=== PATIENT | male | born 1980 | race American Indian/Alaskan Native ===

== ENCOUNTER 2019-02-12 19:11 | Emergency (ER) | payer SELFPAY ==
[2019-02-12 19:37] VITALS: BP 139/88
--- NOTE | 2019-02-12 19:59 | Emergency Department Report ---
Chief Complaint: Dental/Oral Stated Complaint: MOUTH ABSCESS Time Seen by Provider: 02/12/19 19:53 - HPI History of Present Illness: pt presents to the ED with c/o dental abscess to the right lower side [facility] ([facility]) today placed on amoxicillin and ibuprofen has not taken either one yet felt like the abscess opened and had some drainage present pt denies any fever pt has partially cracked tooth on the right lower side abscess present to the gum appears to be open, not able to manually express any drainage small amount of facial edema to the right cheek uvula is midline VSS - Exam Vital Signs: Vital Signs 02/12/19 19:33 Temperature 98.3 F Pulse Rate 98 H Respiratory 18 Rate Blood Pressure 139/88 O2 Sat by Pulse 99 Oximetry MSE screening note: Focused history and physical exam performed. ED Disposition for MSE Clinical Impression: Dental abscess, Cracked tooth, Dental infection Disposition: TO HOME OR SELFCARE Is pt being admited?: No Does the pt Need Aspirin: No Condition: Stable Instructions: Dental Abscess (ED) Additional Instructions: please take your medication that you were prescribed by your dentist. please follow up with your dentist after completion of your antibiotics. return to the emergency room for any new or worsening symptoms. Referrals: your, dentist [Other] - 2-3 Days Time of Disposition: 20:09 Print Language: CAMBODIAN
== END 2019-02-12 20:17 | disposition home or self-care (01) ==
LOC: ED 19:11
DX: K03.81 Cracked tooth (principal); K02.9 Dental caries, unspecified; K04.7 Periapical abscess without sinus
CPT/HCPCS: 99282